=== PATIENT | male | born 1995 | race Caucasian/White ===

== ENCOUNTER 2017-09-10 20:05 | Emergency (ER) | payer SELFPAY ==
[2017-09-10 20:22] VITALS: BP 124/71; PULSE 85; RESP 14; TEMP 36.4; O2SAT 100; BMI 21.1
[2017-09-10] MEDS: ACETAMINOPHEN 325 MG TABLET 975 MG PO (21:30)
[2017-09-10] MEDS: IBUPROFEN 400 MG TABLET 800 MG PO (21:30)
--- NOTE | 2017-09-11 01:20 | ED_ITS ---
HPI - Skin/Abscess/Foreign Bdy General Chief complaint: Skin/Abscess/Foreign Body Stated complaint: LACERATION TO LEFT HAND Time Seen by Provider: 09/11/17 00:42 Source: patient and family Mode of arrival: ambulatory Limitations: no limitations History of Present Illness HPI narrative: patient is a 21-year-old male with all left thenar eminence laceration. He was changing the blade of a income tax consultant or tightening it when the wrench slipped and the blade cut him. No numbness tingling or decreased range of motion. Related Data Allergies Allergy/AdvReac Type Severity Reaction Status Date / Time No Known Drug Allergies Allergy Verified 09/10/17 20:25 Review of Systems Review of Systems GENERAL: Denies chills,fever HEENT: Denies throat pain RESPIRATORY: Denies dyspnea, cough, wheezing CARDIOVASCULAR: Denies chest pain, palpitations GASTROINTESTINAL: Denies nausea, vomiting MUSCULOSKELETAL: Denies extremity pain, injury SKIN: see HPI NEUROLOGIC: Denies weakness, dizziness, headache, numbness 8 point review of systems is negative except for those stated above and HPI [facility] Medical History Ebstein anomaly (Acute) Social History Smoking Status: Never smoker alcohol intake: never substance use type: does not use Comment: immunizations up to date Exam Initial Vital Signs Initial Vital Signs: Vital Signs Temperature 97.6 F 09/10/17 20:22 Pulse Rate 85 09/10/17 20:22 Respiratory Rate 14 09/10/17 20:22 Blood Pressure 124/71 H 09/10/17 20:22 Pulse Oximetry 100 09/10/17 20:22 GENERAL: Well-appearing, well-nourished and in no acute distress. CARDIOVASCULAR: peripheral pulses in tact, cap refill <2 sec RESPIRATORY: No respiratory distress, speaks in full sentences without difficulty EXTREMITIES: Normal range of motion, no clubbing or edema. Neurovascularly intact. see diagram blood NEUROLOGICAL: Cranial nerves II through XII grossly intact. Normal gait and speech. SKIN: Warm, dry, no petechiae, no rashes or lesions. See Diagram below Skin Hand L/R Front: 2 1. 3 cm laceration deep structures intact. Good opposition thumb to pinky, able to Abduct and adduct, flex and extend. Sensation between the thumb and index finger intact. Procedures Laceration Repair Laceration 1: Site: hand Side (If applicable): left Size (cm): 3 Description: linear Depth: simple, single layer Local Anesthetic: lidocaine 1% Amount of anesthesia used (mL): 3 Pre-repair: wound explored, irrigated extensively and deep structures intact Skin layer closed with: nylon Size (cm): 4-0 Number of sutures: 5 Course Orders Ordered: Discontinued Medications Acetaminophen (Tylenol) 975 mg PO NOW ONE Stop: 09/10/17 21:28 Last Admin: 09/10/17 21:30 Dose: 975 mg Ibuprofen (Advil) 800 mg PO NOW ONE Stop: 09/10/17 21:28 Last Admin: 09/10/17 21:30 Dose: 800 mg Vital Signs - 8 hr 09/11/17 01:31 Temperature 98.2 F Pulse Rate 84 Respiratory Rate 18 Blood Pressure 132/71 H Pulse Oximetry 98 Discharge Plan Departure Patient Disposition: Home, Self-Care Clinical Impression: Laceration of left hand Discharge Date/Time: 09/11/17 01:31 Interventions: ED Discharge Assessment Last Done: 09/11/17 01:31 Instructions: DI for Laceration Repair -- Finger Activity Restrictions/Additional Instructions: 1. Have your suture removed in 5-7 days, you may go to walk-in clinic, return to the ER or call your primary care physician. 2. No soaking in water including dishes, bathtubs, Lakes, swimming pools etc 3. Signs of infection include, but not limited to, increased redness, increased swelling, increased pain, fever and purulent drainage, if the symptoms should arise, you may need an antibiotic and you should have a reevaluation either by your primary care provider or by the emergency department. please check with your primary care physician regards to her tetanus. You have 3 days to receive a tetanus after a laceration
[2017-09-11 01:31] VITALS: BP 132/71; PULSE 84; RESP 18; TEMP 36.8; O2SAT 98
== END 2017-09-11 01:31 | disposition home or self-care (01) ==
PROVIDERS: Emergency Provider Emergency Medicine
DX: S61.412A Laceration without foreign body of left hand, initial encounter (principal); W26.9XXA Contact with unspecified sharp object(s), initial encounter
CPT/HCPCS: 12002; 99282

== ENCOUNTER 2017-09-11 19:58 | Emergency (ER) | payer SELFPAY ==
[2017-09-11 20:15] VITALS: BP 113/66; PULSE 78; RESP 15; TEMP 36.4; O2SAT 99
--- NOTE | 2017-09-11 20:16 | ED.RECABL ---
HPI - Recheck/Abnormal Lab/Rx General Chief Complaint: Recheck/Abnormal Lab/Rx Stated Complaint: HAS TO GET A TETANUS SHOT Time Seen by Provider: 09/11/17 20:16 History of Present Illness HPI narrative: The patient is a 21-year-old male here for a tetanus shot. He was seen evaluated yesterday with a left hand laceration. At that time he was unclear of his tetanus status. He returns today for 1. No complaints. Still having some mild discomfort. Dressing has not yet been changed. Related Data Allergies Allergy/AdvReac Type Severity Reaction Status Date / Time No Known Drug Allergies Allergy Verified 09/10/17 20:25 Review of Systems Review of Systems GENERAL: Denies chills,fever HEENT: Denies throat pain RESPIRATORY: Denies dyspnea, cough, wheezing CARDIOVASCULAR: Denies chest pain, palpitations GASTROINTESTINAL: Denies nausea, vomiting MUSCULOSKELETAL: Denies extremity pain, injury SKIN: See HPI NEUROLOGIC: Denies weakness, dizziness, headache, numbness 8 point review of systems is negative except for those stated above and HPI [facility] Medical History Ebstein anomaly (Acute) Social History Smoking Status: Never smoker alcohol intake: never substance use type: does not use Exam Initial Vital Signs Initial Vital Signs: Vital Signs Temperature 97.6 F 09/11/17 20:15 Pulse Rate 78 09/11/17 20:15 Respiratory Rate 15 09/11/17 20:15 Blood Pressure 113/66 09/11/17 20:15 Pulse Oximetry 99 09/11/17 20:15 GENERAL: Well-appearing, well-nourished and in no acute distress. CARDIOVASCULAR: peripheral pulses in tact, cap refill <2 sec RESPIRATORY: No respiratory distress, speaks in full sentences without difficulty EXTREMITIES: Normal range of motion, no clubbing or edema. Neurovascularly intact Left hand: Good thumb ab an abduction, flexion, extension opposition neurovascularly intact. the thenar eminence is tender to touch but no swelling NEUROLOGICAL: Cranial nerves II through XII grossly intact. Normal gait and speech. SKIN: laceration left hand sutures intact no erythema no pus. Course Orders Ordered: Discontinued Medications Diphtheria/Tetanus/Acell Pertussis (Adacel) 0.5 ml IM .ONCE ONE Stop: 09/11/17 20:20 Last Admin: 09/11/17 20:20 Dose: 0.5 ml MDM - Recheck/Abnormal Lab/Rx MDM Narrative Medical decision making narrative: Dressing removed hand is wash Band-Aids placed. Discharge Plan Departure Patient Disposition: Home, Self-Care Clinical Impression: Laceration of left hand Discharge Date/Time: 09/11/17 20:29 Interventions: ED Discharge Assessment Last Done: 09/11/17 20:29 Instructions: DI for Laceration Repair Activity Restrictions/Additional Instructions: *You have been diagnosed with laceration, tetanus shot *Continue to take medications as directed *Follow up with your primary care provider in 2-3 days *Return to ER if you should have any new, worsening or concerning symptoms
[2017-09-11] MEDS: TET,DIPH,PERTUSS(ACELL),VAC/PF 0.5 ML SYRINGE IM (20:20)
== END 2017-09-11 20:29 | disposition home or self-care (01) ==
PROVIDERS: Emergency Provider Emergency Medicine
DX: S61.412S Laceration without foreign body of left hand, sequela (principal); Z23 Encounter for immunization
CPT/HCPCS: 90471; 99282; 99283; 90715